=== PATIENT | female | born 1980 | race Caucasian/White ===

== ENCOUNTER 2022-07-15 10:57 | Outpatient (CLI) | payer OTHER, SELFPAY ==
[2022-07-15 17:25] LABS: Albumin* 4.3 g/dL (3.3-5.0); Chloride* 103 mmol/L (96-114); Potassium* 4.8 mmol/L (3.6-5.1); Sodium* 138 mmol/L (135-149)
[2022-07-15 17:27] LABS: Cholesterol* 195 mg/dL (90-199)
[2022-07-15 17:28] LABS: Alanine Aminotransferase* 17 U/L (4-35); Alkaline Phosphatase* 102 U/L (40-150); Aspartate Amino Transferase* 26 U/L (12-35); Bilirubin Total* 0.2 mg/dL (0.1-1.5); Blood Urea Nitrogen* 14 mg/dL (5-24); Carbon Dioxide* 26 mmol/L (20-32); Creatinine* 0.7 mg/dL (0.5-1.5); Estimated Glomerular Filt Rate 111 ml/min; Glucose* 92 mg/dL (60-115); Total Protein* 7.4 g/dL (6.0-8.3); Triglycerides* 112 mg/dL (40-149)
[2022-07-15 17:29] LABS: Calcium* 9.5 mg/dL (8.4-10.6); HDL Cholesterol* 56 mg/dL (>=50); LDL Cholesterol Calculated 117 mg/dL (<100)
== END 2022-07-15 10:58 | disposition home or self-care (01) ==
PROVIDERS: PCP Family Medicine; Visit Provider Nurse Practitioner Family
DX: Z13.220 Encounter for screening for lipoid disorders (principal); F41.9 Anxiety disorder, unspecified
CPT/HCPCS: 80053; 80061

== ENCOUNTER 2023-02-23 09:43 | Outpatient (CLI) | payer OTHER, SELFPAY ==
--- NOTE | 2023-02-23 09:45 | CRLHL7_ITS ---
For Patients: As a result of the Century Cures Act, medical imaging exams and procedure reports are released immediately into your electronic medical record. You may view this report before your referring provider. If you have questions, please contact your health care provider. BILATERAL DIGITAL SCREENING MAMMOGRAM WITH COMPUTER-AIDED DETECTION CLINICAL HISTORY: Routine screening exam. COMPARISON: 09/28/2021, 09/22/2020. TECHNIQUE: Digital mammogram in CC and MLO projections including computer-aided detection (CAD). BREAST COMPOSITION: The breasts are heterogeneously dense, which may obscure small masses. FINDINGS: RIGHT Breast: Clustered microcalcifications within the medial RIGHT breast 5 cm from the nipple. LEFT Breast: No suspicious findings. IMPRESSION: RIGHT breast calcifications. RECOMMENDATIONS: Spot compression magnification views of the calcifications in the RIGHT breast in CC and ML projections. BI-RADS Category 0: Incomplete: Need additional Imaging Evaluation and/or Prior Mammograms for Comparison The [facility] will contact the patient for follow-up. A lay language report of this examination will be provided to the patient. Dictated by Vikash Carcamo MD @ 02/23/2023 11:09:25 AM jj/Dictated by: Vikash Carcamo MD @ 02/23/2023 11:09:00 AM (Electronically Signed)
== END 2023-02-23 09:44 | disposition home or self-care (01) ==
LOC: MAMMO 09:44
PROVIDERS: PCP Family Medicine; Visit Provider Nurse Practitioner Family
DX: Z12.31 Encounter for screening mammogram for malignant neoplasm of breast (principal); R92.0 Mammographic microcalcification found on diagnostic imaging of breast
CPT/HCPCS: 77067

== ENCOUNTER 2023-02-25 10:38 | Outpatient (CLI) | payer OTHER, SELFPAY ==
--- NOTE | 2023-02-25 10:45 | CRLHL7_ITS ---
For Patients: As a result of the Cures Act, medical imaging exams and procedure reports are released immediately into your electronic medical record. You may view this report before your referring provider. If you have questions, please contact your health care provider. DIGITAL DIAGNOSTIC RIGHT MAMMOGRAM USING COMPUTER-AIDED DETECTION CLINICAL HISTORY: RIGHT breast calcifications. COMPARISON: 02/23/2023, 09/28/2021, 09/22/2020. TECHNIQUE: Digital RIGHT mammogram in two projections. Computer-aided detection utilized. BREAST COMPOSITION: The breast is heterogeneously dense, which may obscure small masses. FINDINGS: Spot magnification CC/MLO and open true lateral RIGHT breast mammogram images submitted. Clustered microcalcifications in the upper inner quadrant 5 cm from the nipple. Mild pleomorphism without layering. IMPRESSION: Indeterminate clustered microcalcifications RIGHT breast upper inner quadrant 5 cm from the nipple. RECOMMENDATIONS: Stereotactic biopsy recommended. Results and recommendations discussed with the patient. BI-RADS Category 4: Suspicious A lay language report of this examination will be provided to the patient. Dictated by Vikash Carcamo MD @ 02/25/2023 12:14:32 PM /Dictated by: Vikash Carcamo MD @ 02/25/2023 12:14:00 PM (Electronically Signed)
== END 2023-02-25 10:39 | disposition home or self-care (01) ==
LOC: MAMMO 10:39
PROVIDERS: PCP Family Medicine; Visit Provider Nurse Practitioner Family
DX: R92.1 Mammographic calcification found on diagnostic imaging of breast (principal); R92.0 Mammographic microcalcification found on diagnostic imaging of breast; R92.8 Other abnormal and inconclusive findings on diagnostic imaging of breast
CPT/HCPCS: 77065

== ENCOUNTER 2025-05-14 10:15 | Outpatient (CLI) | payer OTHER, SELFPAY | END 2025-05-14 10:16 | disposition home or self-care (01) | LOC: FRMREF 10:17 | PROVIDERS: PCP Nurse Practitioner Family; Visit Provider Nurse Practitioner Family | DX: Z13.6 Encounter for screening for cardiovascular disorders (principal) | CPT/HCPCS: 80061 ==